=== PATIENT | male | born 1980 | race Caucasian/White ===

== ENCOUNTER 2021-10-24 20:16 | Emergency (ER) | payer BC ==
[2021-10-24 20:45] LABS: HEMOGLOBIN 16.5 gm/dl (14.0-17.5); WHITE BLOOD COUNT 9.2 K/UL (4.5-11.0)
[2021-10-24 21:30] LABS: BUN/CREATININE RATIO 13 (0-10)
[2021-10-25] MEDS ORDERED: ONDANSETRON ODT4 MG SL (02:18)
[2021-10-25] MEDS ORDERED: PROTONIX 40 MG40 M1 PO (02:18)
== END 2021-10-25 02:25 | disposition home or self-care (01) ==
LOC: ER1 20:16
PROVIDERS: Student in an Organized Health Care Education/Training Program
DX: R10.84 Generalized abdominal pain (principal); R11.2 Nausea with vomiting, unspecified; K21.9 Gastro-esophageal reflux disease without esophagitis; F17.210 Nicotine dependence, cigarettes, uncomplicated
CPT/HCPCS: 80053; 81001; 83690; 85025; 96374; 96375; 99284; C9113; J1885; J2405; Q9967

== ENCOUNTER → 2021-11-08 | Outpatient (CLI) | payer BC ==
[~2021-11-08] MED LIST: ONDANSETRON ODT4 MG SL; PROTONIX 40 MG40 M1 PO
== END ==
LOC: NM 12:32
DX: R10.12 Left upper quadrant pain (principal); R11.12 Projectile vomiting; R10.11 Right upper quadrant pain
CPT/HCPCS: 78227; A9537